=== PATIENT | female | born 2000 | race Hispanic/Latino ===

== ENCOUNTER 2023-11-06 21:28 | Day surgery (SDC) | payer OTHER ==
[2023-11-06 21:54] VITALS: BMI 21.2
[2023-11-06] MEDS ORDERED: cefTRIAXone (ROCEPHIN) 1 GM VIAL IM SCH (22:45)
[2023-11-06] MEDS: Sodium Chloride 0.9% 1,000 ML IV SCH (22:50)
[2023-11-06] MEDS: cefTRIAXone\\ROCEPHIN 1 GM in Sodium Chloride 0.9% 100 ML IVPB SCH (23:10)
[2023-11-06] MEDS ORDERED: hydrALAZINE 20 MG/ML VIAL SLOW IVP PRN (23:54)
== END 2023-11-07 00:34 | disposition home or self-care (01) ==
LOC: CSHLD/OP 21:28
PROVIDERS: ATTEND Family Medicine
DX: O47.03 False labor before 37 completed weeks of gestation, third trimester (principal); O99.891 Other specified diseases and conditions complicating pregnancy; R30.0 Dysuria; O00.01 Abdominal pregnancy with intrauterine pregnancy; R35.89 Other polyuria; Z79.899 Other long term (current) drug therapy; Z3A.32 32 weeks gestation of pregnancy
CPT/HCPCS: 36415; 80053; 81001; 85025; 87077; 87086; 87186; 99284; J0696; J3490; J7050

== ENCOUNTER 2023-12-08 13:45 | Inpatient (IN) | payer OTHER ==
[2023-12-08] MEDS ORDERED: hydrALAZINE 20 MG/ML VIAL SLOW IVP PRN ×2 (14:36→15:41)
[2023-12-08 15:06] LABS: Fetal Membranes Rupture RUPTURE DETECTED (No Rupture)
[2023-12-08] MEDS ORDERED: Misoprostol 200 MCG TAB PR PRN (15:41)
[2023-12-08] MEDS ORDERED: Promethazine HCl 25 MG/ML VIAL IM PRN ×2 (15:41→23:13)
[2023-12-08] MEDS ORDERED: Tranexamic Acid 1,000 MG/10 ML VIAL IVP PRN (15:41)
[2023-12-08] MEDS ORDERED: Diphenoxylate HCl/Atropine Tablet PO PRN ×2 (15:41)
[2023-12-08] MEDS ORDERED: fentaNYL 50 mcg/mL 1 mL Vial SLOW IVP PRN (15:41)
[2023-12-08] MEDS ORDERED: Acetaminophen 500 MG TAB PO PRN (15:41)
[2023-12-08] MEDS ORDERED: Ondansetron PF 4 MG/2 ML Vial IVP PRN ×2 (15:41→23:13)
[2023-12-08] MEDS ORDERED: Carboprost 250 MCG/ML AMP IM PRN (15:41)
[2023-12-08] MEDS ORDERED: Methylergonovine 0.2 MG/ML VIAL IM PRN (15:41)
[2023-12-08] MEDS ORDERED: Lidocaine 1% (PF) 30 ML VIAL SC PRN (15:41)
[2023-12-08] MEDS ORDERED: Oxytocin 30 units/NS 500 ML 500 ML IV SCH ×2 (15:45)
[2023-12-08 17:01] LABS: Hematocrit 34.8 % (34.9-44.5); Hemoglobin 11.7 g/dL (12.0-15.5); Mean Corpuscular HGB CONC 33.6 g/dL (32.0-36.0); Mean Corpuscular Hemoglobin 28.6 pg (27.0-33.0); Mean Corpuscular Volume 85.1 fL (81.6-98.3); Mean Platelet Volume 11.4 fL (7.4-10.4); Platelet Count 143 10x3/uL (150-450); RBC Distribution Width 18.5 % (11.5-14.5); Red Blood Cell (RBC) Count 4.09 10x6/uL (3.90-5.03); White Blood Cell (WBC) Count 5.9 10x3/uL (3.5-10.5)
[2023-12-08 17:30] LABS: Syphilis Antibody Nonreactive (Nonreactive); Syphilis Antibody Index 0.04 S/CO (<1.00 Non-Reactive)
[2023-12-08 17:31] LABS: HBsAg Index 0.18 S/CO (0-0.99); Hep B Surf Ag - L&D Non-Reactive S/CO (NonReactive)
[2023-12-08] MEDS: Misoprostol 100 MCG TAB PO SCH (18:09)
[2023-12-08] MEDS: Lactated Ringer's 1,000 ML IV SCH (18:09)
[2023-12-08] MEDS: fentaNYL/Ropivacaine Epidural 100 ML ONE (22:58)
[2023-12-08] MEDS ORDERED: ePHEDrine Sulfate 50 MG/10 ML VIAL SLOW IVP PRN (23:13)
[2023-12-08] MEDS ORDERED: Naloxone HCl 0.4 mg/ml Vial IVP PRN ×2 (23:13)
[2023-12-08] MEDS ORDERED: Moisturizing Cream (Eucerin) 113 GM JAR TOP PRN (23:13)
[2023-12-08] MEDS ORDERED: Lactated Ringer's 500 ML IV PRN (23:13)
[2023-12-08] MEDS ORDERED: diphenhydrAMINE 50 MG/ML VIAL IVP PRN (23:13)
[2023-12-08] MEDS ORDERED: fentaNYL 2 mcg/Ropivacaine 0.2% Epidural 100 ML CADD EPIDURAL SCH (23:15)
[2023-12-08] MEDS ORDERED: Communication Order-Pharmacy FS SCH (23:15)
[2023-12-08] MEDS: Oxytocin 30 units/NS 500 ML 500 ML IV SCH (23:52)
[2023-12-09] MEDS: Ibuprofen 800 MG TAB PO PRN (00:25)
[2023-12-09] MEDS: Acetaminophen 325 MG TAB PO PRN (00:25)
[2023-12-09] MEDS: CEFAZOLIN 2 GM in Sodium Chloride 0.9% 100 ML IVPB SCH (01:15)
[2023-12-09] MEDS ORDERED: Lanolin Ointment 7 GM TUBE TOP PRN (01:37)
[2023-12-09] MEDS ORDERED: hydrALAZINE 20 MG/ML VIAL SLOW IVP PRN (01:37)
[2023-12-09] MEDS ORDERED: Preparation H Ointment 28 GM TUBE PR PRN (01:37)
[2023-12-09] MEDS ORDERED: Benzocaine-Menthol 82.5 ML CAN TOP PRN (01:37)
[2023-12-09] MEDS ORDERED: Ondansetron PF 4 MG/2 ML Vial IVP PRN (01:37)
[2023-12-09] MEDS ORDERED: Promethazine HCl 25 MG/ML VIAL IM PRN (01:37)
[2023-12-09] MEDS ORDERED: diphenhydrAMINE 25 MG CAP PO PRN (01:37)
[2023-12-09] MEDS ORDERED: Bisacodyl 10 MG SUPP PR PRN (01:37)
[2023-12-09] MEDS ORDERED: Milk Of Magnesia 30 ML UDCUP PO PRN (01:37)
[2023-12-09 01:38] VITALS: BMI 22.6
[2023-12-09] MEDS ORDERED: Oxytocin 30 units/NS 500 ML 500 ML IV SCH (02:00)
[2023-12-09] MEDS: Clindamycin 150 MG CAP PO SCH (03:24)
[2023-12-09] MEDS: Boostrix 0.5 ML (Tdap) VIAL (>/=7 yrs of age) IM ONE (04:00)
[2023-12-09] MEDS: Ferrous Sulfate 325 MG TAB PO SCH (07:28)
[2023-12-09] MEDS: Prenatal Vitamin 1 TAB PO SCH (08:24)
[2023-12-09] MEDS: Docusate 100 MG CAP PO SCH (08:24)
[2023-12-09] MEDS: Ibuprofen 800 MG TAB PO SCH (08:25)
[2023-12-09] MEDS: HYDROcodone/Acetaminophen 5/325 mg Tablet PO SCH (11:18)
[2023-12-10 07:49] VITALS: BP 113/71; TEMP 98
== END 2023-12-10 13:10 | disposition home or self-care (01) | DRG 768 ==
LOC: CSHLD/OP 13:45 → CSHLD 15:51 → CSHPP 12-09 02:02
PROVIDERS: ADMIT Family Medicine; ATTEND Family Medicine
PROC: 10E0XZZ Delivery of Products of Conception, External Approach (ICD-10-PCS; principal; 2023-12-08)
PROC: 0UBGXZX Excision of Vagina, External Approach, Diagnostic (ICD-10-PCS; 2023-12-08)
PROC: 0HQ9XZZ Repair Perineum Skin, External Approach (ICD-10-PCS; 2023-12-08)
DX: O77.0 Labor and delivery complicated by meconium in amniotic fluid (principal); Z37.0 Single live birth; O72.1 Other immediate postpartum hemorrhage; O98.82 Other maternal infectious and parasitic diseases complicating childbirth; Z3A.37 37 weeks gestation of pregnancy; O70.0 First degree perineal laceration during delivery; N76.0 Acute vaginitis
CPT/HCPCS: 84112; 85027; 86780; 86850; 86900; 86901; 87070; 87205; 87340; 87480; 87510; 87660; 88304; 88307; J2590; J3490; J7120